=== PATIENT | female | born 1995 | race Caucasian/White ===

== ENCOUNTER 2017-02-14 07:16 | Emergency (ER) | payer OTHER ==
[~2017-02-14] VITALS: Ht 162.6 cm; Wt 75.0 kg
[2017-02-14 07:28] VITALS: BP 114/73
[2017-02-14] MEDS ORDERED: FYCOMPA (07:31)
== END 2017-02-14 08:21 | disposition home or self-care (01) ==
LOC: ER 07:53
DX: G40.909 Epilepsy, unspecified, not intractable, without status epilepticus (principal)
CPT/HCPCS: 99283

== ENCOUNTER 2020-07-28 19:38 | Emergency (ER) | payer MEDICAID, OTHER ==
[~2020-07-28] VITALS: Ht 163.8 cm; Wt 87.0 kg
[~2020-07-28 19:38] MED LIST: FYCOMPA
[2020-07-28 20:30] LABS: BASOPHILS % 0.4 % (0.0-2.0); EOSINOPHILS % 0.7 % (0.0-5.0); HEMATOCRIT. 38.6 % (36.0-48.0); HEMOGLOBIN. 13.1 g/dL (12.0-16.0); LYMPHOCYTES % 11.1 % (20.0-50.0); MEAN CORPUSCULAR HEMOGLOBIN 30.6 pg (28.0-32.0); MEAN CORPUSCULAR VOLUME 90.2 fL (81.0-99.0); MEAN PLATELET VOLUME 9.2 fl (7.4-10.4); MONOCYTES % 6.3 % (2.0-8.0); NEUTROPHILS % 81.5 % (40.0-76.0); PLATELET 266 x1000/uL (130-400); RED BLOOD CELL COUNT 4.28 mill/uL (4.2-5.4); RED CELL DISTRIBUTION WIDTH 13.4 % (11.6-14.6)
[2020-07-28 20:34] LABS: CHLORIDE 107 mEq/L (98-107)
[2020-07-28 20:39] LABS: ETHANOL BLOOD < 10 mg/dL
[2020-07-28 21:41] LABS: CLARITY URINE CLOUDY (CLEAR); COLOR URINE YELLOW (YELLOW); KETONES URINE TRACE (NEGATIVE); LEUKOCYTE ESTERASE URINE 2+ (NEGATIVE); NITRITE URINE NEGATIVE (NEGATIVE); OCCULT BLOOD URINE NEGATIVE (NEGATIVE); PH URINE 6.5 (4.5-8.0); PROTEIN URINE 2+ (NEGATIVE); SPECIFIC GRAVITY URINE 1.025 (1.005-1.030); UROBILINOGEN URINE 0.2 E.U./dL (0.2-1.0)
[2020-07-28 21:51] LABS: *AMPHETAMINES SCREEN URINE NEGATIVE (NEGATIVE); *BARBITURATES SCREEN URINE NEGATIVE (NEGATIVE)
[2020-07-28 21:52] LABS: *COCAINE SCREEN URINE NEGATIVE (NEGATIVE); CANNABINOID URINE SCREEN NEGATIVE (NEGATIVE); METHADONE URINE SCREEN NEGATIVE (NEGATIVE); OPIATES URINE SCREEN NEGATIVE (NEGATIVE); PHENCYCLIDINE URINE SCREEN NEGATIVE (NEGATIVE)
[2020-07-28 21:54] LABS: *BENZODIAZEPINES SCREEN URINE PRESUMTIVE POSITIVE (NEGATIVE)
[2020-07-28 22:40] VITALS: BP 113/77
== END 2020-07-28 22:52 | disposition home or self-care (01) ==
LOC: ER 19:38
DX: G40.909 Epilepsy, unspecified, not intractable, without status epilepticus (principal)
CPT/HCPCS: 36415; 80053; 80305; 80320; 81003; 81025; 85025; 93005; 99285; G0480

== ENCOUNTER 2024-04-06 11:47 | Emergency (ER) | payer SELFPAY ==
[~2024-04-06] VITALS: Ht 170.2 cm; Wt 91.0 kg
[2024-04-06 12:05] VITALS: O2SAT 96
[2024-04-06] MEDS ORDERED: IBUP-2028 MT (14:41)
[2024-04-06] MEDS ORDERED: TOPUD MT (14:41)
[2024-04-06 14:49] VITALS: BP 113/70; PULSE 70; RESP 18; TEMP 98.2
== END 2024-04-06 14:54 | disposition home or self-care (01) ==
LOC: ER 11:47
DX: S00.12XA Contusion of left eyelid and periocular area, initial encounter (principal); H11.32 Conjunctival hemorrhage, left eye; G40.909 Epilepsy, unspecified, not intractable, without status epilepticus; W18.39XA Other fall on same level, initial encounter; Y93.89 Activity, other specified; Y92.89 Other specified places as the place of occurrence of the external cause; Y99.8 Other external cause status
CPT/HCPCS: 70486; 99284